=== PATIENT | male | born 1960 | race Caucasian/White ===

== ENCOUNTER 2020-09-08 16:12 | Outpatient (CLI) | payer OTHER, SELFPAY ==
--- NOTE | ~2020-09-08 | XR_ITS ---
EXAMINATION: XR knee RT min 4V EXAM DATE: 09/08/2020 16:43 INDICATION: No known recent injury provided at this time. Pain of the right knee. States ACL repair 6 months ago. TECHNIQUE: Right knee lateral, frontal AP, frontal PA tunnel, sunrise projections. There is no prior study for comparison. FINDINGS: There are no acute right knee fractures or dislocations identified. There is no subcutan eous gas. The soft tissue is unremarkable. ACL repair anchors in position. There is mild right knee osteoarthritis, probably primary osteoarthritis. Mild meniscal calcification s. Chondrocalcinosis can be an age related finding, but with other possible etiologies including CPPD , parathyroid disorders, hemochromatosis, gout. IMPRESSION: 1. Mild right knee osteoarthritis. 2. Chondrocalcinosis. Reviewed, dictated and finalized at location A.
[2020-09-08 16:38] LABS: Immature Reticulocyte Fraction 21.1 % (2.0-16.52); Reticulocyte Hemoglobin Conten 31.3 pg (28.0-35.0); Reticulocyte Percent 3.46 % (0.50-1.50); Reticulocytes Absolute 0.15 M/mm3 (0.02-0.1)
[2020-09-08 17:57] LABS: Vitamin B12 587 pg/mL (193-986)
[2020-09-13 06:26] LABS: Red Blood Cell Folate 755 ng/mL RBC (>280)
== END 2020-09-08 16:13 | disposition home or self-care (01) ==
LOC: CHSLAB 16:16
PROVIDERS: PCP Internal Medicine; Visit Provider Internal Medicine
DX: D70.9 Neutropenia, unspecified (principal); D64.9 Anemia, unspecified; M25.561 Pain in right knee
CPT/HCPCS: 36415; 73564; 82607; 82747; 85046; 88184; 88185; 88189

== ENCOUNTER → 2020-09-19 12:05 | Outpatient (CLI) | payer OTHER, SELFPAY ==
--- NOTE | ~2020-09-19 | MR_ITS ---
EXAMINATION: MR knee RT wo con DATE: 09/19/2020 13:03 INDICATION: Right knee pain TECHNIQUE: Magnetic resonance imaging (MRI) of the right knee was performed without intravenous contr ast. Sequences included coronal PD-weighted FSE, coronal PD-weighted FS FSE, sagittal T2-weighted FS E, sagittal PD-weighted FS FSE and axial PD weighted fat saturated FSE. COMPARISON: None. FINDINGS: Medial compartment: Complex tear of the body and posterior horn of the medial meniscus with longitudinal vertical compone nt extending from the posterior horn to the junction of the anterior horn and body and with secondary tear plane at the meniscal body which extends peripherally from the free edge likely additional radi al or parrot beak configuration. Chondral ulceration. Involve greater than 50% of the cartilage thickness at the central weightbearing medial femoral condyle with deep fissuring at the anterior weightbearing medial femoral condyle and more shallow chondral surface irregularity at the posterior weightbearing medial femoral condyle. Car tilage at the medial tibial plateau remains relatively preserved. Lateral compartment: Complex tear at the anterior horn of the lateral meniscus including a pair beak configuration tear pl ane near the junction with the anterior body and with longitudinal horizontal tear plane extending to the superior articular surface at the more medial anterior horn. Deep chondral fissuring with minima l underlying subarticular edema at the central aspect of the lateral tibial plateau. Deep chondral ul ceration/fissuring with underlying irregularity to the articular cortex and minimal subarticular aníbal a at the junction of the anterior to central weightbearing lateral femoral condyle. Shallow chondral surface regularity at the posterior weightbearing lateral femoral condyle. Patellofemoral compartment: Deep chondral ulceration at the patellar apical ridge and adjacent medial facet with mild subarticula r edema. Additional partial thickness chondral fissuring at the lateral patellar facet. Deep chondral ulceration at the medial trochlea with prominent central subchondral osteophyte at the superolateral aspect of the medial trochlea. Additional less severe partial thickness cartilage loss at the trochl ear groove and at the cephalad aspect of the lateral trochlea without degenerative subchondral change s. Ligaments and tendons: Posterior cruciate ligament is normal. Intact appearing anterior cruciate ligament reconstruction. Th e medial collateral ligament and fibular collateral ligament complex are normal. Patellar tendon is n ormal. Mild distal quadriceps tendinopathy. The visualized medial and lateral hamstring tendons as we ll as the iliotibial band are normal. Fluid: Small right knee joint effusion. No loose osteochondral bodies identified. Osseous/other: Bone alignment is normal. No fracture or pathologic marrow replacing process. IMPRESSION: 1. Complex tears of the medial and lateral menisci. 2. Intact appearing anterior cruciate ligament reconstruction. 3. Mild osteoarthritis with regions of moderate and high-grade chondromalacia in all 3 compartments m ost severe in the patellofemoral compartment. 4. Likely reactive small right knee joint effusion. Reviewed, dictated and finalized at location B. IMPRESSION: 1. Complex tears of the medial and lateral menisci. 2. Intact appearing anterior cruciate ligament reconstruction. 3. Mild osteoarthritis with regions of moderate and high-grade chondromalacia i n all 3 compartments most severe in the patellofemoral compartment. 4. Likely reactive small right knee joint effusion.
== END ==
PROVIDERS: PCP Internal Medicine; Visit Provider Internal Medicine
DX: M25.561 Pain in right knee (principal); S83.271A Complex tear of lateral meniscus, current injury, right knee, initial encounter; S83.231A Complex tear of medial meniscus, current injury, right knee, initial encounter; M17.11 Unilateral primary osteoarthritis, right knee; M94.261 Chondromalacia, right knee; M25.461 Effusion, right knee
CPT/HCPCS: 73721

== ENCOUNTER 2020-10-10 02:40 | Outpatient (CLI) | payer OTHER, SELFPAY ==
[2020-10-10 21:23] LABS: SARS-CoV-2 RNA PCR Negative
== END 2020-10-10 02:41 | disposition home or self-care (01) ==
LOC: ANHCOVIDDT 02:41
PROVIDERS: PCP Internal Medicine; Visit Provider Surgery
DX: Z01.812 Encounter for preprocedural laboratory examination (principal); Z20.828 Contact with and (suspected) exposure to other viral communicable diseases
CPT/HCPCS: 87635; C9803; U0003

== ENCOUNTER 2020-10-13 02:07 | Day surgery (SDC) | payer OTHER, SELFPAY ==
[2020-10-05 14:49] VITALS: BMI 27.3
[2020-10-13 07:50] VITALS: BP 122/86; PULSE 83; RESP 18; TEMP 36.4; O2SAT 97
[2020-10-13] MEDS: LACTATED RINGERS 1,000 ML 150 ML IV CONT (07:51)
--- NOTE | 2020-10-13 08:09 | PM.IMHP ---
H&P: HPI History of Present Illness Date/Time: 10/13/20 08:09 Chief complaint: Melena / Anemia Narrative: Lebron Lynn is a 59 year old male who presents for EGD and colonoscopy. He had a positive hemoccult test recently but hasn't noticed blood in his stool. Has prior hx of GERD but hasn't had any problems for a few years. Last colonoscopy was 10 yrs ago and was normal. Denies changes in bowels. No fam hx colon cancer. Review of Systems Review of Systems: All systems reviewed & are unremarkable except as noted in HPI and below Constitutional: Constitutional: Denies chills, Denies fever(s), Denies headache(s) and Denies weight loss Eyes: Eyes: Denies change in vision ENT: Denies dizziness, Denies headache(s), Denies neck mass and Denies throat swelling Cardiovascular: Cardiovascular: Denies chest pain, Denies lightheadedness and Denies dyspnea Respiratory: Respiratory: Denies cough, Denies dyspnea and Denies wheezing Gastrointestinal: Gastrointestinal: Denies abdominal pain, Denies change in bowel habits, Denies nausea and Denies vomiting Genitourinary: Genitourinary: Denies hematuria and Denies dysuria Musculoskeletal: Musculoskeletal: Reports as per HPI Integumentary/Breasts: Skin/Breast: Reports as per HPI Neurologic: Denies dizziness and Denies headache(s) Allergic/Immunologic: Allergic/Immunologic: Denies throat swelling and Denies wheezing [facility] Past Medical History Medical History (Updated 10/13/20 @ 08:11 by Antione Olivares DO) BPH (benign prostatic hyperplasia) HTN (hypertension) Seizure Social History Social History Alcohol intake: current Drinks per week: 1 Living arrangements: with family Gender identity (if verbalized by the patient): Male Spiritual care concerns: No Meds Home Medications and Allergies Home Medications Medication Instructions Recorded Confirmed Type levetiracetam 750 mg PO DAILY 10/05/20 10/05/20 History lisinopril 20 mg PO DAILY 10/05/20 10/05/20 History tamsulosin 0.4 mg PO DAILY 10/05/20 10/05/20 History Allergies Allergy/AdvReac Type Severity Reaction Status Date / Time Bumble Bee Allergy Mild LOCALIZED Uncoded 10/13/20 07:38 SWELLING Vital Signs Vital Signs - 24 hr 10/13/20 07:50 Temperature 36.4 C Pulse Rate 83 Respiratory Rate 18 Blood Pressure 122/86 Pulse Oximetry 97 Exam Const: General: no acute distress and alert Orientation/consciousness: patient oriented x3 HENMT: Head: normocephalic and atraumatic Ears: hearing grossly normal bilaterally General nose exam: Normal nares present Mouth: Yes Normal oral and palatal mucosa present Eyes: Periorbital: periorbital findings normal Sclera: sclerae normal EOM: EOMs intact bilaterally Neck: Neck: normal visual inspection, no lymphadenopathy and trachea midline Chest: Chest palpation & inspection: normal inspection of the chest Resp: Effort & Inspection: normal respiratory effort Auscultation: clear to auscultation bilaterally Cardio: Jugular venous distension: no JVD Rate: regular rate Rhythm: regular rhythm Heart sounds: S1 normal heart sound present and S2 normal heart sound present Peripheral pulses: Peripheral pulses 2+ throughout GI: Inspection: normal to inspection GI Palp: Yes Soft to palpation, No Tenderness to palpation present (GI), No Guarding due to palpation present (GI) and No Rebound tenderness present Percussion: Yes normal to percussion Auscultation: normal bowel sounds : General: Yes no CVA tenderness Back/Spine/Pelvis: Back: no CVA tenderness Neuro: General: patient oriented x3, no focal motor deficits and CN's II-XI intact bilaterally Cognition (Neuro): normal cognition Speech: normal speech Motor exam (neuro): 5/5 motor strength present throughout Extrem: General: capillary refill normal and no clubbing, cyanosis or edema Assessment and Plan Assessment and plan (1
--- NOTE | 2020-10-13 08:41 | P.PNAN_ITS ---
Anes - Initial Pre Proc Eval Procedure: Operation Date: 10/13/20 08:30 Proposed Procedures p Esophagogastroduodenoscopy & Colonoscopy - Antione Olivares DO Date/Time: 10/13/20 08:41 Surgeon: Antione Olivares DO Pre Op Diagnosis: Melena / Anemia Patient Data Age: 59 Gender: M Height: 6 ft 4 in Weight: 102 kg Last Vital Signs Temp 97.6 F 10/13/20 07:50 Pulse 83 10/13/20 07:50 Resp 18 10/13/20 07:50 BP 122/86 10/13/20 07:50 Pulse Ox 97 10/13/20 07:50 Allergies Allergy/AdvReac Type Severity Reaction Status Date / Time Bumble Bee Allergy Mild LOCALIZED Uncoded 10/13/20 07:38 SWELLING Home Medications Medication Instructions Recorded Confirmed Type levetiracetam 750 mg PO DAILY 10/05/20 10/05/20 History lisinopril 20 mg PO DAILY 10/05/20 10/05/20 History tamsulosin 0.4 mg PO DAILY 10/05/20 10/05/20 History Patient hx anesthesia problems: none Family hx anesthesia problems: none [facility] Past Medical History Medical History (Updated 10/13/20 @ 08:11 by Antione Olivares DO) BPH (benign prostatic hyperplasia) HTN (hypertension) Seizure Social History Social History Alcohol intake: current Drinks per week: 1 Living arrangements: with family Gender identity (if verbalized by the patient): Male Spiritual care concerns: No Anes - Eval Final PreProcedure Day of Procedure 10/13/20 08:41 Patient weight: normal Heart: regular rate and rhythm Lungs: clear to auscultation Airway: Mallampati scale class II Neurological: alert and oriented Last oral intake: >/= 8 hours ASA classification: III Emergent: no Anesthetic plan: proceed Anesthesia type and monitoring: general GIVS and standard monitoring Informed Consent: The patient's anesthetic plan and its attendant risks and benefits were discussed with the patient/family/POA. Questions were solicited and answers provided to the satisfaction of the patient/family/POA.
[2020-10-13 09:35] VITALS: BP 97/68; PULSE 85; RESP 18; O2SAT 99
[2020-10-13 09:45] VITALS: BP 103/74; PULSE 72; RESP 18; O2SAT 99
[2020-10-13 09:55] VITALS: BP 106/76; PULSE 74; RESP 18; O2SAT 99
== END 2020-10-13 10:10 | disposition home or self-care (01) ==
PROVIDERS: PCP Internal Medicine; Visit Provider Surgery
PROC: 0DJ08ZZ Inspection of Upper Intestinal Tract, Via Natural or Artificial Opening Endoscopic (ICD-10-PCS; CPT 43235; principal; 2020-10-13 08:30)
DX: R19.5 Other fecal abnormalities (principal); K57.32 Diverticulitis of large intestine without perforation or abscess without bleeding; K63.5 Polyp of colon; K29.80 Duodenitis without bleeding; K29.60 Other gastritis without bleeding; I10 Essential (primary) hypertension; N40.0 Benign prostatic hyperplasia without lower urinary tract symptoms; G40.909 Epilepsy, unspecified, not intractable, without status epilepticus
CPT/HCPCS: 45380; 43239; 87081; 88305; J2704; J7120

== ENCOUNTER 2021-08-04 10:40 | Outpatient (CLI) | payer OTHER, SELFPAY ==
[2021-08-04 10:57] LABS: Hematocrit 41.1 % (40.0-54.0); Hemoglobin 13.4 g/dL (14.0-18.0); Mean Corpuscular HGB Conc 32.6 g/dL (32.0-36.0); Mean Corpuscular Hemoglobin 28.9 pg (27.0-31.0); Mean Corpuscular Volume 88.6 fL (78.0-102.0); Mean Platelet Volume 8.9 fl (8.7-11.0); Platelet Count Result 213 K/mm3 (150-420); Red Blood Count 4.64 M/mm3 (4.70-6.10); White Blood Count 15.4 K/mm3 (4.8-10.8)
[2021-08-04 10:58] LABS: Appearance Urine Clear (Clear); Bilirubin Urine Negative (Negative); Blood Urine 2+ (Negative); Glucose Urine UA Trace (Negative); Ketones Urine Negative (Negative); Leukocyte Esterase Ur 2+ (Negative); Nitrate Urine Positive (Negative); Protein Urine Negative (Negative); Specific Grav Ur <= 1.005 (1.010-1.020)
[2021-08-04 11:13] LABS: Add Urine Microscopic? YES
[2021-08-04 11:14] LABS: Bacteria Urine Trace /hpf; Color Urine Dark Orange (Yellow); RBC Urine 0-2 /hpf (0-2); Squamous Epithelial Cell Urine Rare /hpf (Few)
[2021-08-04 11:23] LABS: Total Cells Counted 100
[2021-08-04 11:24] LABS: Band Neutrophils Percent 3 % (0-6); Lymphocytes Absolute Manual 1.38 K/mm3 (1.1-4.5); Lymphocytes Percent Manual 9 % (18-44); Monocytes Percent Manual 13 % (3-9); Neutrophils Absolute Manual 12.01 K/mm3 (1.3-6.7); Neutrophils Percent Manual 75 % (46-73); Platelet Estimate Adequate (Adequate)
[2021-08-04 11:27] LABS: Anion Gap 12 mmol/L (8-16); Blood Urea Nitrogen 17 mg/dL (7-18); Carbon Dioxide 25 mmol/L (21-32); Chloride 108 mmol/L (98-108); Estimated Glomerular Filt Rate 60; Glucose 86 mg/dL (70-99); Osmolality Calculated 300 mOsm/kg (285-295); Potassium 4.1 mmol/L (3.5-5.1); Sodium 145 mmol/L (136-145)
== END 2021-08-04 10:41 | disposition home or self-care (01) ==
LOC: CHSLAB 10:44
PROVIDERS: PCP Internal Medicine; Visit Provider Internal Medicine
DX: R50.9 Fever, unspecified (principal); R35.0 Frequency of micturition; R39.15 Urgency of urination
CPT/HCPCS: 36415; 80048; 81001; 84153; 85025; 87040; 87086; 87186

== ENCOUNTER 2021-08-21 07:21 | Outpatient (CLI) | payer OTHER, SELFPAY ==
[2021-08-21 07:32] LABS: Hematocrit 36.3 % (40.0-54.0); Hemoglobin 11.7 g/dL (14.0-18.0); Mean Corpuscular HGB Conc 32.2 g/dL (32.0-36.0); Mean Corpuscular Hemoglobin 28.5 pg (27.0-31.0); Mean Corpuscular Volume 88.5 fL (78.0-102.0); Mean Platelet Volume 8.7 fl (8.7-11.0); Platelet Count Result 316 K/mm3 (150-420); Red Cell Distribution Width 12.9 % (11.6-14.4); White Blood Count 2.7 K/mm3 (4.8-10.8)
[2021-08-21 08:12] LABS: Total Cells Counted 100
[2021-08-21 08:13] LABS: Band Neutrophils Percent 0 % (0-6); Eosinophils Absolute Manual 0.02 K/mm3 (0.02-0.5); Eosinophils Percent Manual 1 % (1-6); Lymphocytes Absolute Manual 1.72 K/mm3 (1.1-4.5); Lymphocytes Percent Manual 64 % (18-44); Monocytes Absolute Manual 0.48 K/mm3 (0.1-0.90); Monocytes Percent Manual 18 % (3-9); Neutrophils Absolute Manual 0.45 K/mm3 (1.3-6.7); Neutrophils Percent Manual 17 % (46-73); Platelet Estimate Adequate (Adequate)
[2021-08-21 08:21] LABS: Anion Gap 10 mmol/L (8-16); Blood Urea Nitrogen 20 mg/dL (7-18); Calcium 9.2 mg/dL (8.5-10.1); Carbon Dioxide 27 mmol/L (21-32); Chloride 107 mmol/L (98-108); Estimated Glomerular Filt Rate > 60; Glucose 102 mg/dL (70-99); Osmolality Calculated 300 mOsm/kg (285-295); Potassium 4.6 mmol/L (3.5-5.1); Prostate Specific Antigen 18.8 ng/mL (< OR = 4.0); Sodium 144 mmol/L (136-145)
== END 2021-08-21 07:22 | disposition home or self-care (01) ==
LOC: CHSLAB 07:23
PROVIDERS: PCP Internal Medicine; Visit Provider Internal Medicine
DX: N41.9 Inflammatory disease of prostate, unspecified (principal); D72.829 Elevated white blood cell count, unspecified
CPT/HCPCS: 36415; 80048; 84153; 85025; 85060

== ENCOUNTER 2022-01-23 07:19 | Outpatient (CLI) | payer OTHER, SELFPAY ==
[2022-01-23 07:30] LABS: Mean Corpuscular HGB Conc 32.4 g/dL (32.0-36.0); Mean Corpuscular Hemoglobin 28.6 pg (27.0-31.0); Mean Corpuscular Volume 88.3 fL (78.0-102.0); Mean Platelet Volume 9.2 fl (8.7-11.0); Platelet Count Result 247 K/mm3 (150-420); Red Blood Count 4.19 M/mm3 (4.70-6.10); Red Cell Distribution Width 13.7 % (11.6-14.4); White Blood Count 3.5 K/mm3 (4.8-10.8)
[2022-01-23 07:46] LABS: Add Urine Microscopic? YES; Appearance Urine Clear (Clear); Bilirubin Urine Negative (Negative); Blood Urine 2+ (Negative); Color Urine Yellow (Yellow); Glucose Urine UA Negative (Negative); Ketones Urine Negative (Negative); Leukocyte Esterase Ur Negative LEU/UL (Negative); Nitrate Urine Negative (Negative); Protein Urine Negative (Negative); Specific Grav Ur >= 1.030 (1.010-1.020); Urobilinogen Urine 0.2 mg/dL (0.2-1.0); pH Urine 5.5 (5.0-8.0)
[2022-01-23 07:51] LABS: Bacteria Urine Trace /hpf; Mucus Urine Few /lpf; WBC Urine None seen /hpf (0-3)
[2022-01-23 08:38] LABS: Band Neutrophils Percent 0 % (0-6); Lymphocytes Absolute Manual 1.85 K/mm3 (1.1-4.5); Lymphocytes Percent Manual 53 % (18-44); Monocytes Percent Manual 20 % (3-9); Neutrophils Absolute Manual 0.94 K/mm3 (1.3-6.7); Neutrophils Percent Manual 27 % (46-73); Total Cells Counted 100
[2022-01-23 08:39] LABS: Platelet Estimate Adequate (Adequate)
[2022-01-23 09:22] LABS: Alanine Aminotransferase 22 U/L (16-63); Alkaline Phosphatase 63 U/L (46-116); Anion Gap 9 mmol/L (8-16); Aspartate Amino Transferase 12 U/L (15-37); Bilirubin,Total 0.2 mg/dL (0.00-1.00); Blood Urea Nitrogen 24 mg/dL (7-18); Calcium 9.6 mg/dL (8.5-10.1); Carbon Dioxide 26 mmol/L (21-32); Chloride 110 mmol/L (98-108); Cholesterol 112 mg/dL (0-200); Estimated Glomerular Filt Rate > 60; Glucose 97 mg/dL (70-99); HDL Direct 40 mg/dL (40-60); LDL Cholesterol Calculated 63 mg/dL (<130); Osmolality Calculated 304 mOsm/kg (285-295); Potassium 4.7 mmol/L (3.5-5.1); Sodium 145 mmol/L (136-145); Total Protein 6.6 g/dL (6.4-8.2); Triglycerides 44 mg/dL (0-150); Vitamin B12 764 pg/mL (193-986)
== END 2022-01-23 07:20 | disposition home or self-care (01) ==
LOC: CHSLAB 07:21
PROVIDERS: PCP Internal Medicine; Visit Provider Internal Medicine
DX: E53.8 Deficiency of other specified B group vitamins (principal); I10 Essential (primary) hypertension
CPT/HCPCS: 36415; 80053; 80061; 81001; 82607; 85025

== ENCOUNTER 2022-02-01 15:50 | Outpatient (CLI) | payer OTHER, SELFPAY ==
[2022-02-01 17:01] LABS: Prostate Specific Antigen 14.1 ng/mL (< OR = 4.0)
== END 2022-02-01 15:51 | disposition home or self-care (01) ==
LOC: CHSLAB 15:51
PROVIDERS: PCP Internal Medicine; Visit Provider Internal Medicine
DX: R97.20 Elevated prostate specific antigen [PSA] (principal)
CPT/HCPCS: 36415; 84153

== ENCOUNTER 2022-03-22 14:41 | Outpatient (CLI) | payer OTHER, SELFPAY ==
[2022-03-22 14:55] LABS: Add Urine Microscopic? YES; Appearance Urine Clear (Clear); Bilirubin Urine Negative (Negative); Blood Urine 2+ (Negative); Color Urine Light Yellow (Yellow); Glucose Urine UA Negative (Negative); Ketones Urine Negative (Negative); Leukocyte Esterase Ur Negative (Negative); Nitrate Urine Negative (Negative); Protein Urine Negative (Negative); Urobilinogen Urine 0.2 mg/dL (0.2-1.0)
[2022-03-22 15:01] LABS: WBC Urine 0-3 /hpf (0-3)
[2022-03-22 15:02] LABS: Bacteria Urine None seen /hpf; Squamous Epithelial Cell Urine Rare /hpf (Few)
[2022-03-22 15:23] LABS: Prostate Specific Antigen 12.4 ng/mL (< OR = 4.0)
== END 2022-03-22 14:42 | disposition home or self-care (01) ==
LOC: CHSLAB 14:43
PROVIDERS: PCP Internal Medicine; Visit Provider Internal Medicine
DX: R97.20 Elevated prostate specific antigen [PSA] (principal)
CPT/HCPCS: 36415; 81001; 84153; 87086

== ENCOUNTER 2022-08-08 07:13 | Outpatient (CLI) | payer OTHER, SELFPAY ==
[2022-08-08 07:36] LABS: Add Urine Microscopic? YES; Appearance Urine Clear (Clear); Bilirubin Urine Negative (Negative); Blood Urine 3+ (Negative); Color Urine Yellow (Yellow); Glucose Urine UA Negative (Negative); Hematocrit 36.4 % (40.0-54.0); Hemoglobin 11.6 g/dL (14.0-18.0); Ketones Urine Negative (Negative); Leukocyte Esterase Ur Negative LEU/UL (Negative); Mean Corpuscular HGB Conc 31.9 g/dL (32.0-36.0); Mean Corpuscular Hemoglobin 28.4 pg (27.0-31.0); Mean Corpuscular Volume 89.2 fL (78.0-102.0); Mean Platelet Volume 9.6 fl (8.7-11.0); Nitrate Urine Negative (Negative); Platelet Count Result 215 K/mm3 (150-420); Protein Urine Negative (Negative); Red Blood Count 4.08 M/mm3 (4.70-6.10); Red Cell Distribution Width 13.2 % (11.6-14.4); Specific Grav Ur 1.025 (1.010-1.020); Urobilinogen Urine 0.2 mg/dL (0.2-1.0); White Blood Count 2.6 K/mm3 (4.8-10.8)
[2022-08-08 07:46] LABS: Hemoglobin A1C 5.3 % (<5.7)
[2022-08-08 07:52] LABS: WBC Urine None seen /hpf (0-3)
[2022-08-08 07:53] LABS: Bacteria Urine Trace /hpf; Mucus Urine Moderate /lpf
[2022-08-08 08:00] LABS: Band Neutrophils Percent 0 % (0-6); Lymphocytes Absolute Manual 1.37 K/mm3 (1.1-4.5); Lymphocytes Percent Manual 53 % (18-44); Monocytes Absolute Manual 0.62 K/mm3 (0.1-0.90); Monocytes Percent Manual 24 % (3-9); Neutrophils Absolute Manual 0.59 K/mm3 (1.3-6.7); Neutrophils Percent Manual 23 % (46-73); Platelet Estimate Adequate (Adequate); Total Cells Counted 100
[2022-08-08 08:39] LABS: Alanine Aminotransferase 35 U/L (16-63); Albumin Level 3.9 g/dL (3.4-5.0); Alkaline Phosphatase 66 U/L (46-116); Anion Gap 7 mmol/L (8-16); Aspartate Amino Transferase 60 U/L (15-37); Bilirubin,Total 0.3 mg/dL (0.00-1.00); Blood Urea Nitrogen 16 mg/dL (7-18); Calcium 9.6 mg/dL (8.5-10.1); Carbon Dioxide 25 mmol/L (21-32); Chloride 107 mmol/L (98-108); Cholesterol 101 mg/dL (0-200); Estimated Glomerular Filt Rate > 60; Glucose 101 mg/dL (70-99); HDL Direct 41 mg/dL (40-60); LDL Cholesterol Calculated 53 mg/dL (<130); Osmolality Calculated 289 mOsm/kg (285-295); Potassium 4.6 mmol/L (3.5-5.1); Sodium 139 mmol/L (136-145); Total Protein 6.3 g/dL (6.4-8.2); Triglycerides 35 mg/dL (0-150); Vitamin B12 608 pg/mL (193-986)
[2022-08-08 08:51] LABS: Creatine Kinase 1135 U/L (39-308)
[2022-08-08 17:21] LABS: Ferritin 119 ng/mL (26-388); Iron 55 ug/dL (65-175)
[2022-08-08 17:36] LABS: Prostate Specific Antigen 6.9 ng/mL (< OR = 4.0)
== END 2022-08-08 07:14 | disposition home or self-care (01) ==
LOC: CHSLAB 07:15
PROVIDERS: PCP Internal Medicine; Visit Provider Internal Medicine
DX: E53.8 Deficiency of other specified B group vitamins (principal); I10 Essential (primary) hypertension; R97.20 Elevated prostate specific antigen [PSA]; N39.0 Urinary tract infection, site not specified; R73.01 Impaired fasting glucose; D64.9 Anemia, unspecified
CPT/HCPCS: 36415; 80053; 80061; 81001; 82550; 82607; 82728; 83036; 83540; 84153; 85025; G0103

== ENCOUNTER 2023-02-18 07:17 | Outpatient (CLI) | payer OTHER, SELFPAY ==
[2023-02-18 07:28] LABS: Appearance Urine Clear (Clear); Bilirubin Urine Negative (Negative); Blood Urine 3+ (Negative); Color Urine Yellow (Yellow); Glucose Urine UA Negative (Negative); Hematocrit 34.9 % (40.0-54.0); Hemoglobin 11.1 g/dL (14.0-18.0); Ketones Urine Negative (Negative); Leukocyte Esterase Ur Negative LEU/UL (Negative); Mean Corpuscular HGB Conc 31.8 g/dL (32.0-36.0); Mean Corpuscular Hemoglobin 27.5 pg (27.0-31.0); Mean Corpuscular Volume 86.4 fL (78.0-102.0); Mean Platelet Volume 9.4 fl (8.7-11.0); Nitrate Urine Negative (Negative); Platelet Count Result 193 K/mm3 (150-420); Protein Urine Negative (Negative); Red Blood Count 4.04 M/mm3 (4.70-6.10); Red Cell Distribution Width 13.7 % (11.6-14.4); Specific Grav Ur >= 1.030 (1.010-1.020); Urobilinogen Urine 0.2 mg/dL (0.2-1.0); White Blood Count 2.6 K/mm3 (4.8-10.8); pH Urine 5.5 (5.0-8.0)
[2023-02-18 07:34] LABS: Add Urine Microscopic? YES; WBC Urine None seen /hpf (0-3)
[2023-02-18 07:35] LABS: Bacteria Urine Rare /hpf; Mucus Urine Few /lpf
[2023-02-18 08:09] LABS: Band Neutrophils Percent 0 % (0-6); Eosinophils Absolute Manual 0.02 K/mm3 (0.02-0.5); Eosinophils Percent Manual 1 % (1-6); Lymphocytes Absolute Manual 0.98 K/mm3 (1.1-4.5); Lymphocytes Percent Manual 38 % (18-44); Monocytes Absolute Manual 0.75 K/mm3 (0.1-0.90); Monocytes Percent Manual 29 % (3-9); Neutrophils Absolute Manual 0.83 K/mm3 (1.3-6.7); Neutrophils Percent Manual 32 % (46-73); Total Cells Counted 100
[2023-02-18 08:10] LABS: Platelet Estimate Adequate (Adequate)
[2023-02-18 08:21] LABS: Hemoglobin A1C 5.1 % (<5.7)
[2023-02-18 08:56] LABS: Alanine Aminotransferase 21 U/L (16-63); Albumin Level 3.8 g/dL (3.4-5.0); Alkaline Phosphatase 68 U/L (46-116); Anion Gap 8 mmol/L (8-16); Aspartate Amino Transferase 22 U/L (15-37); Bilirubin,Total 0.3 mg/dL (0.00-1.00); Blood Urea Nitrogen 24 mg/dL (7-18); Calcium 9.4 mg/dL (8.5-10.1); Carbon Dioxide 28 mmol/L (21-32); Chloride 110 mmol/L (98-108); Cholesterol 116 mg/dL (0-200); Creatine Kinase 179 U/L (39-308); Estimated Glomerular Filt Rate > 60; Ferritin 127 ng/mL (26-388); Glucose 102 mg/dL (70-99); HDL Direct 30 mg/dL (40-60); Iron 88 ug/dL (65-175); LDL Cholesterol Calculated 69 mg/dL (<130); Osmolality Calculated 306 mOsm/kg (285-295); Potassium 4.7 mmol/L (3.5-5.1); Prostate Specific Antigen 7.5 ng/mL (< OR = 4.0); Sodium 146 mmol/L (136-145); Total Protein 6.8 g/dL (6.4-8.2); Triglycerides 84 mg/dL (0-150); Vitamin B12 1168 pg/mL (193-986)
== END 2023-02-18 07:18 | disposition home or self-care (01) ==
LOC: CHSLAB 07:19
PROVIDERS: PCP Internal Medicine; Visit Provider Internal Medicine
DX: R31.9 Hematuria, unspecified (principal); I10 Essential (primary) hypertension; N40.1 Benign prostatic hyperplasia with lower urinary tract symptoms; E53.8 Deficiency of other specified B group vitamins; E78.2 Mixed hyperlipidemia; R73.01 Impaired fasting glucose
CPT/HCPCS: 36415; 80053; 80061; 81001; 82550; 82607; 82728; 83036; 83540; 84153; 85025; 88112

== ENCOUNTER 2023-02-27 15:44 | Outpatient (CLI) | payer OTHER, SELFPAY ==
--- NOTE | ~2023-02-27 | XR_ITS ---
EXAMINATION: XR chest 2V DATE: 02/27/2023 16:01 INDICATION: Bronchitis and cough TECHNIQUE: PA and lateral views of the chest are obtained. COMPARISON: 07/02/2016 FINDINGS: There are minimal airspace opacities of the left lung base. Calcified pulmonary nodules and calcified bilateral hilar and mediastinal lymph nodes are consistent with old granulomatous disease. No pleural effusion or pneumothorax. The cardiomediastinal silhouette is normal. There is mild thora cic spondylosis. IMPRESSION: 1. Left lower lobe airspace opacities, likely pneumonia. Consider followup radiographs or chest CT in six weeks if symptoms persist after appropriate therapy or if the patient is at high risk for malign esther. Reviewed, dictated and finalized at location B. IMPRESSION: 1. Left lower lobe airspace opacities, likely pneumonia. Consider followup radi ographs or chest CT in six weeks if symptoms persist after appropriate therapy or if the patient is at high risk for malignancy.
== END 2023-02-27 15:45 | disposition home or self-care (01) ==
LOC: CHSIMG 15:46
PROVIDERS: PCP Internal Medicine; Visit Provider Internal Medicine
DX: R05.9 Cough, unspecified (principal); J40 Bronchitis, not specified as acute or chronic; R91.8 Other nonspecific abnormal finding of lung field
CPT/HCPCS: 71046

== ENCOUNTER 2023-03-22 11:51 | Outpatient (CLI) | payer OTHER, SELFPAY ==
--- NOTE | ~2023-03-22 | XR_ITS ---
Clinical Indication: Pneumonia PA and lateral views of the chest: Comparison: 03/07/2023 Findings: The lungs are clear, without evidence of focal consolidation or pleural effusion. Small cathie cified mediastinal and hilar lymph nodes are present. Cardiomediastinal silhouette is within normal l imits. Bones and soft tissues are unremarkable. Impression: Clear lungs. Small calcified mediastinal and hilar lymph nodes. Reviewed, dictated and finalized at location M. Impression: Clear lungs. Small calcified mediastinal and hilar lymph nodes.
== END 2023-03-22 11:52 | disposition home or self-care (01) ==
LOC: CHSIMG 11:53
PROVIDERS: PCP Internal Medicine; Visit Provider Internal Medicine
DX: J18.8 Other pneumonia, unspecified organism (principal)
CPT/HCPCS: 71046

== ENCOUNTER 2023-06-20 06:59 | Outpatient (CLI) | payer OTHER, SELFPAY ==
[2023-06-20 07:11] LABS: Hematocrit 36.4 % (40.0-54.0); Hemoglobin 11.7 g/dL (14.0-18.0); Mean Corpuscular HGB Conc 32.1 g/dL (32.0-36.0); Mean Corpuscular Hemoglobin 27.6 pg (27.0-31.0); Mean Corpuscular Volume 85.8 fL (78.0-102.0); Mean Platelet Volume 8.6 fl (8.7-11.0); Platelet Count Result 243 K/mm3 (150-420); Red Blood Count 4.24 M/mm3 (4.70-6.10); Red Cell Distribution Width 13.3 % (11.6-14.4)
[2023-06-20 07:39] LABS: Band Neutrophils Percent 0 % (0-6); Basophils Percent Manual 0 % (0-1); Eosinophils Percent Manual 0 % (1-6); Lymphocytes Absolute Manual 1.47 K/mm3 (1.1-4.5); Lymphocytes Percent Manual 49 % (18-44); Monocytes Absolute Manual 0.69 K/mm3 (0.1-0.90); Monocytes Percent Manual 23 % (3-9); Neutrophils Absolute Manual 0.84 K/mm3 (1.3-6.7); Neutrophils Percent Manual 28 % (46-73); Platelet Estimate Adequate (Adequate); Total Cells Counted 100
== END 2023-06-20 07:00 | disposition home or self-care (01) ==
LOC: CHSLAB 07:01
PROVIDERS: PCP Internal Medicine; Visit Provider Internal Medicine
DX: D64.9 Anemia, unspecified (principal)
CPT/HCPCS: 36415; 85025

== ENCOUNTER 2023-08-14 16:37 | Outpatient (CLI) | payer OTHER, SELFPAY ==
[2023-08-14 16:51] LABS: Hematocrit 36.6 % (40.0-54.0); Hemoglobin 11.6 g/dL (14.0-18.0); Mean Corpuscular HGB Conc 31.7 g/dL (32.0-36.0); Mean Corpuscular Hemoglobin 27.6 pg (27.0-31.0); Mean Corpuscular Volume 86.9 fL (78.0-102.0); Mean Platelet Volume 9.2 fl (8.7-11.0); Platelet Count Result 207 K/mm3 (150-420); Red Blood Count 4.21 M/mm3 (4.70-6.10); Red Cell Distribution Width 13.1 % (11.6-14.4)
[2023-08-14 17:16] LABS: Lactate Dehydrogenase 139 U/L (85-227)
[2023-08-14 18:02] LABS: Band Neutrophils Percent 0 % (0-6); Basophils Percent Manual 0 % (0-1); Eosinophils Percent Manual 0 % (1-6); Lymphocytes Absolute Manual 1.74 K/mm3 (1.1-4.5); Lymphocytes Percent Manual 58 % (18-44); Monocytes Absolute Manual 0.42 K/mm3 (0.1-0.90); Monocytes Percent Manual 14 % (3-9); Neutrophils Absolute Manual 0.84 K/mm3 (1.3-6.7); Neutrophils Percent Manual 28 % (46-73); Platelet Estimate Adequate (Adequate); Total Cells Counted 100
== END 2023-08-14 16:38 | disposition home or self-care (01) ==
LOC: CHSLAB 16:40
PROVIDERS: PCP Internal Medicine; Visit Provider Internal Medicine
DX: D61.818 Other pancytopenia (principal)
CPT/HCPCS: 36415; 83615; 85025

== ENCOUNTER 2023-10-28 16:09 | Outpatient (CLI) | payer OTHER, SELFPAY ==
[2023-10-28 16:23] LABS: Hematocrit 36.6 % (40.0-54.0); Hemoglobin 11.5 g/dL (14.0-18.0); Mean Corpuscular HGB Conc 31.4 g/dL (32.0-36.0); Mean Corpuscular Volume 89.3 fL (78.0-102.0); Mean Platelet Volume 9.4 fl (8.7-11.0); Platelet Count Result 196 K/mm3 (150-420); White Blood Count 2.5 K/mm3 (4.8-10.8)
[2023-10-28 16:49] LABS: Atypical Lymphocytes Present; Band Neutrophils Percent 0 % (0-6); Eosinophils Percent Manual 0 % (1-6); Lymphocytes Percent Manual 56 % (18-44); Monocytes Absolute Manual 0.47 K/mm3 (0.1-0.90); Monocytes Percent Manual 19 % (3-9); Neutrophils Absolute Manual 0.62 K/mm3 (1.3-6.7); Neutrophils Percent Manual 25 % (46-73); Platelet Estimate Adequate (Adequate); Schistocytes None Seen (NORMAL); Total Cells Counted 100
[2023-11-04 10:46] LABS: Reference Lab Test Name FLOW
== END 2023-10-28 16:10 | disposition home or self-care (01) ==
LOC: CHSLAB 16:11
PROVIDERS: PCP Internal Medicine; Visit Provider Internal Medicine
DX: D72.9 Disorder of white blood cells, unspecified (principal)
CPT/HCPCS: 36415; 85025; 88184; 88185; 88189

== ENCOUNTER 2023-12-16 13:54 | Outpatient (CLI) | payer OTHER, SELFPAY ==
--- NOTE | ~2023-12-16 | XR_ITS ---
XR chest 2V 12/16/2023 14:24 Indication: Productive cough for 3 days Procedure: 2 view chest Comparison: No prior studies for comparison. Findings: Heart size is normal. Right lung clear. Left lower lobe airspace disease, compatible with p neumonia. No pneumothorax. There is a healed left clavicular fracture. Impression: 1: Left lower lobe pneumonia. Reviewed, dictated and finalized at location B. AIGN SPECIALIST Impression: 1: Left lower lobe pneumonia.
[2023-12-16 14:15] LABS: Hematocrit 37.1 % (40.0-54.0); Hemoglobin 11.7 g/dL (14.0-18.0); Mean Corpuscular HGB Conc 31.5 g/dL (32.0-36.0); Mean Corpuscular Hemoglobin 27.7 pg (27.0-31.0); Mean Corpuscular Volume 87.9 fL (78.0-102.0); Mean Platelet Volume 9.7 fl (8.7-11.0); Platelet Count Result 151 K/mm3 (150-420); Red Blood Count 4.22 M/mm3 (4.70-6.10); Red Cell Distribution Width 13.7 % (11.6-14.4); White Blood Count 3.7 K/mm3 (4.8-10.8)
[2023-12-16 14:19] LABS: Appearance Urine Clear (Clear); Bilirubin Urine Negative (Negative); Blood Urine 3+ (Negative); Color Urine Yellow (Yellow); Glucose Urine UA Negative (Negative); Ketones Urine Negative (Negative); Leukocyte Esterase Ur Negative (Negative); Nitrate Urine Negative (Negative); Protein Urine 1+ (Negative); Specific Grav Ur 1.025 (1.010-1.020); Urobilinogen Urine 0.2 mg/dL (0.2-1.0); pH Urine 5.5 (5.0-8.0)
[2023-12-16 14:25] LABS: Add Urine Microscopic? YES
[2023-12-16 14:26] LABS: Bacteria Urine Trace /hpf; WBC Urine 0-3 /hpf (0-3)
[2023-12-16 14:29] LABS: Band Neutrophils Percent 0 % (0-6); Eosinophils Absolute Manual 0.03 K/mm3 (0.02-0.5); Eosinophils Percent Manual 1 % (1-6); Lymphocytes Absolute Manual 0.44 K/mm3 (1.1-4.5); Lymphocytes Percent Manual 12 % (18-44); Monocytes Absolute Manual 1.22 K/mm3 (0.1-0.90); Monocytes Percent Manual 33 % (3-9); Neutrophils Absolute Manual 1.99 K/mm3 (1.3-6.7); Neutrophils Percent Manual 54 % (46-73); Platelet Estimate Adequate (Adequate); Total Cells Counted 100
[2023-12-16 14:38] LABS: Alanine Aminotransferase 18 U/L (16-63); Albumin Level 3.6 g/dL (3.4-5.0); Alkaline Phosphatase 66 U/L (46-116); Anion Gap 11 mmol/L (8-16); Aspartate Amino Transferase 13 U/L (15-37); Bilirubin,Total 0.5 mg/dL (0.00-1.00); Blood Urea Nitrogen 17 mg/dL (7-18); Calcium 9.1 mg/dL (8.5-10.1); Carbon Dioxide 24 mmol/L (21-32); Chloride 102 mmol/L (98-108); Estimated Glomerular Filt Rate > 60; Glucose 112 mg/dL (70-99); Osmolality Calculated 286 mOsm/kg (285-295); Potassium 3.7 mmol/L (3.5-5.1); Sodium 137 mmol/L (136-145); Total Protein 7.5 g/dL (6.4-8.2)
[2023-12-16 14:55] LABS: RSV RNA, RT-PCR Positive (Negative)
== END 2023-12-16 13:55 | disposition home or self-care (01) ==
LOC: CHSLAB 13:55
PROVIDERS: PCP Internal Medicine; Visit Provider Internal Medicine
DX: R05.9 Cough, unspecified (principal); J18.9 Pneumonia, unspecified organism; R50.9 Fever, unspecified
CPT/HCPCS: 36415; 71046; 80053; 81001; 85025; 87040; 87086; 87088; 87634

== ENCOUNTER 2024-01-13 16:26 | Outpatient (CLI) | payer OTHER, SELFPAY ==
--- NOTE | ~2024-01-13 | XR_ITS ---
EXAMINATION: XR chest 2V Exam Date/Time: 01/13/2024 16:30 HEAD OF GEOGRAPHY HISTORY: PNEUMONIA Comparison: 12/16/2023. RESULT: Lines, tubes, and devices: None. Lungs and pleura: Improving left basilar opacities. Left basilar scar. Emphysematous change. Cardiomediastinal silhouette: Stable. Other: No acute osseous or upper abdominal finding. IMPRESSION: Pneumonia. Reviewed, dictated and finalized at location K. OF GEOGRAPHY IMPRESSION: Pneumonia.
== END 2024-01-13 16:27 | disposition home or self-care (01) ==
LOC: CHSIMG 16:27
PROVIDERS: PCP Internal Medicine; Visit Provider Internal Medicine
DX: J18.8 Other pneumonia, unspecified organism (principal)
CPT/HCPCS: 71046

== ENCOUNTER 2024-03-24 06:49 | Outpatient (CLI) | payer OTHER, SELFPAY ==
[2024-03-24 07:06] LABS: Hematocrit 35.5 % (40.0-54.0); Hemoglobin 11.3 g/dL (14.0-18.0); Mean Corpuscular HGB Conc 31.8 g/dL (32-36); Mean Corpuscular Hemoglobin 27.8 pg (27.0-31.0); Mean Corpuscular Volume 87.4 fL (78.0-102.0); Mean Platelet Volume 9.2 fl (8.7-11.0); Platelet Count Result 183 K/mm3 (150-420); Red Blood Count 4.06 M/mm3 (4.70-6.10); Red Cell Distribution Width 13.2 % (11.6-14.4); White Blood Count 1.8 K/mm3 (4.8-10.8)
[2024-03-24 07:13] LABS: Appearance Urine Clear (Clear); Bilirubin Urine Negative (Negative); Blood Urine 3+ (Negative); Color Urine Yellow (Yellow); Glucose Urine UA Negative (Negative); Ketones Urine Negative (Negative); Leukocyte Esterase Ur Negative LEU/UL (Negative); Nitrate Urine Negative (Negative); Protein Urine Negative (Negative); Specific Grav Ur 1.025 (1.010-1.020); Urobilinogen Urine 0.2 mg/dL (0.2-1.0)
[2024-03-24 07:18] LABS: Add Urine Microscopic? YES; Bacteria Urine Rare /hpf; WBC Urine None seen /hpf (0-3)
[2024-03-24 07:25] LABS: Band Neutrophils Percent 0 % (0-6); Lymphocytes Absolute Manual 1.04 K/mm3 (1.1-4.5); Lymphocytes Percent Manual 58 % (18-44); Monocytes Absolute Manual 0.27 K/mm3 (0.1-0.90); Monocytes Percent Manual 15 % (3-9); Neutrophils Absolute Manual 0.48 K/mm3 (1.3-6.7); Neutrophils Percent Manual 27 % (46-73); Total Cells Counted 100
[2024-03-24 07:26] LABS: Basophils Percent Manual 0 % (0-1); Eosinophils Percent Manual 0 % (1-6); Platelet Estimate Adequate (Adequate)
[2024-03-24 08:01] LABS: Alanine Aminotransferase 20 U/L (16-63); Albumin Level 4.1 g/dL (3.4-5.0); Alkaline Phosphatase 62 U/L (46-116); Anion Gap 4 mmol/L (4-12); Aspartate Amino Transferase 21 U/L (15-37); Bilirubin,Total 0.3 mg/dL (0.00-1.00); Blood Urea Nitrogen 19 mg/dL (7-18); Calcium 9.4 mg/dL (8.5-10.1); Carbon Dioxide 29 mmol/L (21-32); Chloride 107 mmol/L (98-108); Cholesterol 107 mg/dL (0-200); Estimated Glomerular Filt Rate > 60; Glucose 100 mg/dL (70-99); HDL Direct 34 mg/dL (40-60); LDL Cholesterol Calculated 63 mg/dL (<130); Osmolality Calculated 292 mOsm/kg (285-295); Potassium 4.4 mmol/L (3.5-5.1); Prostate Specific Antigen 3.4 ng/mL (< OR = 4.0); Sodium 140 mmol/L (136-145); Total Protein 6.5 g/dL (6.4-8.2); Triglycerides 51 mg/dL (0-150); Vitamin B12 409 pg/mL (193-986)
[2024-03-24 10:35] LABS: Lactate Dehydrogenase 166 U/L (85-227)
[2024-03-30 16:44] LABS: Reference Lab Test Name FLOW CYTOMETRY
== END 2024-03-24 06:50 | disposition home or self-care (01) ==
LOC: CHSLAB 06:51
PROVIDERS: PCP Internal Medicine; Visit Provider Internal Medicine
DX: I10 Essential (primary) hypertension (principal); E78.2 Mixed hyperlipidemia; R97.20 Elevated prostate specific antigen [PSA]; N39.0 Urinary tract infection, site not specified; E53.8 Deficiency of other specified B group vitamins; D72.9 Disorder of white blood cells, unspecified
CPT/HCPCS: 36415; 80053; 80061; 81001; 82607; 83615; 84153; 85025; 88184; 88185

== ENCOUNTER 2024-12-18 06:55 | Outpatient (CLI) | payer OTHER, SELFPAY ==
[2024-12-18 07:11] LABS: Add Urine Microscopic? YES; Appearance Urine Clear (Clear); Bilirubin Urine Negative (Negative); Blood Urine 2+ (Negative); Color Urine Yellow (Yellow); Glucose Urine UA Negative (Negative); Hematocrit 37.3 % (40.0-54.0); Hemoglobin 11.4 g/dL (14.0-18.0); Ketones Urine Negative (Negative); Leukocyte Esterase Ur Negative LEU/UL (Negative); Mean Corpuscular HGB Conc 30.6 g/dL (32-36); Mean Corpuscular Hemoglobin 26.9 pg (27.0-31.0); Mean Platelet Volume 9.6 fl (8.7-11.0); Nitrate Urine Negative (Negative); Platelet Count Result 210 K/mm3 (150-420); Protein Urine Negative (Negative); Red Blood Count 4.24 M/mm3 (4.70-6.10); Red Cell Distribution Width 13.5 % (11.6-14.4); Specific Grav Ur 1.025 (1.010-1.020); Urobilinogen Urine 0.2 mg/dL (0.2-1.0); White Blood Count 2.1 K/mm3 (4.8-10.8)
[2024-12-18 07:21] LABS: Bacteria Urine Rare /hpf; WBC Urine None seen /hpf (0-3)
[2024-12-18 08:08] LABS: Alanine Aminotransferase 22 U/L (16-63); Albumin Level 4.3 g/dL (3.4-5.0); Alkaline Phosphatase 76 U/L (46-116); Anion Gap 5 mmol/L (4-12); Aspartate Amino Transferase 13 U/L (15-37); Bilirubin,Total 0.6 mg/dL (0.00-1.00); Blood Urea Nitrogen 25 mg/dL (7-18); Calcium 9.8 mg/dL (8.5-10.1); Carbon Dioxide 28 mmol/L (21-32); Chloride 108 mmol/L (98-108); Cholesterol 90 mg/dL (0-200); Estimated Glomerular Filt Rate > 60; Ferritin 128 ng/mL (26-388); Glucose 101 mg/dL (70-99); HDL Direct 34 mg/dL (40-60); Iron 111 ug/dL (65-175); LDL Cholesterol Calculated 47 mg/dL (<130); Osmolality Calculated 296 mOsm/kg (285-295); Potassium 4.6 mmol/L (3.5-5.1); Prostate Specific Antigen 3.9 ng/mL (< OR = 4.0); Sodium 141 mmol/L (136-145); Total Protein 6.7 g/dL (6.4-8.2); Triglycerides 47 mg/dL (0-150); Vitamin B12 574 pg/mL (193-986)
== END 2024-12-18 06:56 | disposition home or self-care (01) ==
LOC: CHSLAB 06:59
PROVIDERS: PCP Internal Medicine; Visit Provider Internal Medicine
DX: R31.9 Hematuria, unspecified (principal); I10 Essential (primary) hypertension; E78.2 Mixed hyperlipidemia; N39.0 Urinary tract infection, site not specified; R97.20 Elevated prostate specific antigen [PSA]; E53.8 Deficiency of other specified B group vitamins; D64.9 Anemia, unspecified
CPT/HCPCS: 36415; 80053; 80061; 81001; 82607; 82728; 83540; 84153; 85027; 88112